=== PATIENT | male | born 1960 ===

== ENCOUNTER 2020-07-08 09:06 | Outpatient (CLI) | payer OTHER ==
[~2020-07-08 09:06] MED LIST: LYRICA50 MG PO; PREGABALIN50 MG PO; PREGABALIN75 MG PO
== END 2020-07-08 10:18 | disposition home or self-care (01) ==
LOC: RAD 09:06 → SONOGRAMA 09:06 → MAMO-SONO 09:15 → RAD 10:18
PROVIDERS: ATTEND Physical Medicine & Rehabilitation
DX: M21.70 Unequal limb length (acquired), unspecified site (principal)

== ENCOUNTER 2021-01-20 09:19 | Outpatient (CLI) | payer OTHER | END 2021-01-20 09:23 | disposition home or self-care (01) | LOC: SONOGRAMA 09:19 | PROVIDERS: ATTEND Internal Medicine | DX: M25.512 Pain in left shoulder (principal); M25.612 Stiffness of left shoulder, not elsewhere classified; Z00.00 Encounter for general adult medical examination without abnormal findings ==